=== PATIENT | female | born 2000 | race Hispanic/Latino ===

== ENCOUNTER 2020-04-12 09:13 | Outpatient (CLI) | payer OTHER ==
[2020-04-12 21:36] LABS: SARS-CoV-2 MS2 Positive; SARS-CoV-2 N Gene Negative; SARS-CoV-2 S Gene Negative; SARS-CoV-2 by NAA Not Detected (NotDetected); SARS-CoV-2 orf1ab Negative
== END 2020-04-12 09:14 | disposition home or self-care (01) ==
LOC: LABBT 09:13
PROVIDERS: ATTEND Family Medicine
DX: Z20.828 Contact with and (suspected) exposure to other viral communicable diseases (principal)
CPT/HCPCS: 87635; U0003

== ENCOUNTER 2020-04-15 16:56 | Inpatient (IN) | payer OTHER, SELFPAY ==
[~2020-04-15 16:56] MED LIST: Bupivacaine HCl 0.25%/Epi 0.0005/PF 10 ML VIAL FS ONE; Bupivacaine/Epinephrine 0.5% 10 ML VIAL ONE
[2020-04-15 21:00] VITALS: BMI 37.5
[2020-04-15] MEDS ORDERED: Carboprost 250 MCG/ML AMP IM PRN (21:03)
[2020-04-15] MEDS ORDERED: hydrALAZINE 20 MG/ML VIAL SLOW IVP PRN (21:03)
[2020-04-15] MEDS ORDERED: Ibuprofen 800 MG TAB PO PRN (21:03)
[2020-04-15] MEDS ORDERED: Lidocaine 1% (PF) 30 ML VIAL SC PRN (21:03)
[2020-04-15] MEDS ORDERED: HYDROcodone/Acetaminophen 5/325 mg Tablet PO PRN (21:03)
[2020-04-15] MEDS ORDERED: Methylergonovine 0.2 MG/ML VIAL IM PRN (21:03)
[2020-04-15] MEDS ORDERED: Ondansetron PF 4 MG/2 ML Vial IVP PRN (21:03)
[2020-04-15] MEDS ORDERED: Misoprostol 200 MCG TAB PR PRN (21:03)
[2020-04-15] MEDS ORDERED: Diphenoxylate HCl/Atropine Tablet PO PRN (21:03)
[2020-04-15] MEDS ORDERED: Promethazine HCl 25 MG/ML VIAL IM PRN (21:03)
[2020-04-15] MEDS ORDERED: Butorphanol Tartrate 1 MG/ML VIAL SLOW IVP PRN (21:03)
[2020-04-15] MEDS: Lactated Ringer's 1,000 ML IV SCH (21:30)
[2020-04-15] MEDS ORDERED: NS w/ Oxytocin 30 units 500 ML IVPB SCH ×2 (21:30)
[2020-04-15] MEDS: Misoprostol 100 MCG TAB VAG SCH (21:36)
[2020-04-15 22:07] LABS: Hemoglobin 12.9 g/dL (12.0-16.0); Mean Corpuscular HGB CONC 35.2 g/dL (32.0-36.0); Mean Corpuscular Hemoglobin 30.7 pg (27.0-31.0); Mean Corpuscular Volume 87.3 fL (78.0-98.0); Mean Platelet Volume 8.7 fL (7.4-10.4); Platelet Count 223 thou/uL (130-400); RBC Distribution Width 12.1 % (11.5-14.5); Red Blood Cell (RBC) Count 4.21 mill/uL (4.20-5.40); White Blood Cell (WBC) Count 9.4 thou/uL (4.8-10.8)
[2020-04-15 22:45] LABS: Syphilis Antibody Nonreactive (Nonreactive); Syphilis Antibody Index 0.03 S/CO (<1.00 Non-Reactive)
[2020-04-15 23:12] LABS: HBSAg Index 0.17 S/CO (0-0.99); Hep B Surf Ag Non-Reactive S/CO (NonReactive)
[2020-04-16] MEDS: Misoprostol 100 MCG TAB VAG SCH ×4 (00:30→10:52)
[2020-04-16] MEDS: Lactated Ringer's 1,000 ML IV SCH ×2 (02:53→05:17)
[2020-04-16] MEDS ORDERED: Fentanyl 4 mcg/Bup 0.1% Cadd 100 ML in Premix Bag 1 BAG EPIDURAL SCH (04:30)
[2020-04-16] MEDS ORDERED: ePHEDrine 50 MG/ML VIAL SLOW IVP PRN (05:16)
[2020-04-16] MEDS ORDERED: diphenhydrAMINE 50 MG/ML VIAL IVP PRN (05:16)
[2020-04-16] MEDS ORDERED: Lactated Ringer's 500 ML IV PRN (05:16)
[2020-04-16] MEDS ORDERED: Acetaminophen 325 MG TAB PO PRN (05:16)
[2020-04-16] MEDS ORDERED: Naloxone HCl 0.4 mg/ml Vial IVP PRN ×2 (05:16)
[2020-04-16] MEDS ORDERED: Ondansetron PF 4 MG/2 ML Vial IVP PRN ×2 (05:16→10:29)
[2020-04-16] MEDS ORDERED: Promethazine HCl 25 MG/ML VIAL IM PRN ×2 (05:16→10:29)
[2020-04-16] MEDS ORDERED: Communication Order-Pharmacy FS SCH (05:30)
[2020-04-16] MEDS ORDERED: Fentanyl 4 mcg/Bupivacaine 0.1% Cassette 100 ML EPIDURAL SCH (05:30)
[2020-04-16] MEDS ORDERED: Ondansetron PF 4 MG/2 ML Vial ONE (06:18)
[2020-04-16] MEDS ORDERED: Lidocaine 1% (PF) 30 ML VIAL ONE (06:53)
[2020-04-16] MEDS: NS w/ Oxytocin 30 units 500 ML IVPB PRN ×2 (07:52→08:33)
[2020-04-16 08:47] LABS: Actual Bicarbonate (HCO3a) 19.8 mEq/L (22-28); Actual Bicarbonate (HCO3v) 20 mEq/L (22-28); Analyzer IN Cardio OR; Base Excess -8.5 mEq/L (-2.0 to +3.0); Base Excess (BEa) -9.2 mEq/L (-2.0 to +3.0)
[2020-04-16 08:48] LABS: pH (Cord, venous) 7.21 (7.32-7.43)
[2020-04-16] MEDS ORDERED: Benzocaine-Menthol 82.5 ML CAN TOP PRN (10:29)
[2020-04-16] MEDS ORDERED: Preparation H Ointment 28 GM TUBE PR PRN (10:29)
[2020-04-16] MEDS ORDERED: NS / Oxytocin 40 units/1000ml 1,000 ML IV SCH (10:29)
[2020-04-16] MEDS ORDERED: Lanolin Ointment 7 GM TUBE TOP PRN (10:29)
[2020-04-16] MEDS ORDERED: HYDROcodone/Acetaminophen 5/325 mg Tablet PO PRN ×2 (10:29)
[2020-04-16] MEDS ORDERED: Milk Of Magnesia 30 ML UDCUP PO PRN (10:29)
[2020-04-16] MEDS ORDERED: diphenhydrAMINE 25 MG CAP PO PRN (10:29)
[2020-04-16] MEDS ORDERED: Bisacodyl 10 MG SUPP PR PRN (10:29)
[2020-04-16] MEDS ORDERED: Adacel (T-DAP) 0.5 ML SYRINGE IM ONE (10:29)
[2020-04-16] MEDS ORDERED: Docusate Calcium (SURFAK) 240 MG CAP PO SCH (12:00)
[2020-04-16] MEDS ORDERED: hydrALAZINE 20 MG/ML VIAL SLOW IVP SCH (12:00)
[2020-04-16] MEDS: Ibuprofen 800 MG TAB PO SCH ×2 (15:33→21:39)
[2020-04-16] MEDS: Ferrous Sulfate 325 MG TAB PO SCH (15:55)
[2020-04-16] MEDS: Docusate Calcium (SURFAK) 240 MG CAP PO SCH (21:40)
[2020-04-17] MEDS: Ibuprofen 800 MG TAB PO SCH ×3 (06:16→21:35)
[2020-04-17] MEDS: Ferrous Sulfate 325 MG TAB PO SCH (07:15)
[2020-04-17] MEDS: Docusate Calcium (SURFAK) 240 MG CAP PO SCH ×2 (08:42→21:35)
[2020-04-17] MEDS: Prenatal Vitamin 1 TAB PO SCH (08:42)
[2020-04-18] MEDS: Ibuprofen 800 MG TAB PO SCH (06:08)
[2020-04-18] MEDS: Ferrous Sulfate 325 MG TAB PO SCH (07:16)
[2020-04-18 07:58] VITALS: BP 117/70; TEMP 98.4
[2020-04-18] MEDS: Docusate Calcium (SURFAK) 240 MG CAP PO SCH (08:37)
[2020-04-18] MEDS: Prenatal Vitamin 1 TAB PO SCH (08:37)
== END 2020-04-18 14:22 | disposition home or self-care (01) | DRG 807 ==
LOC: L&D 20:07 → 3SE 04-16 10:46
PROVIDERS: ADMIT Family Medicine; ATTEND Family Medicine
PROC: 3E0P7VZ Introduction of Hormone into Female Reproductive, Via Natural or Artificial Opening (ICD-10-PCS; 2020-04-15)
PROC: 10D07Z6 Extraction of Products of Conception, Vacuum, Via Natural or Artificial Opening (ICD-10-PCS; principal; 2020-04-16)
PROC: 0W8NXZZ Division of Female Perineum, External Approach (ICD-10-PCS; 2020-04-16)
DX: O76 Abnormality in fetal heart rate and rhythm complicating labor and delivery (principal); Z37.0 Single live birth; Z3A.40 40 weeks gestation of pregnancy; Z20.828 Contact with and (suspected) exposure to other viral communicable diseases
CPT/HCPCS: 36415; 51702; 82805; 85027; 86780; 86850; 86900; 86901; 87340; J2405; J2590; J3490

== ENCOUNTER 2021-01-20 08:08 | Outpatient (CLI) | payer OTHER | END 2021-01-20 08:09 | disposition home or self-care (01) | LOC: BICULT 08:08 | PROVIDERS: ATTEND Nurse Practitioner Women's Health | DX: Z34.82 Encounter for supervision of other normal pregnancy, second trimester (principal); Z3A.20 20 weeks gestation of pregnancy | CPT/HCPCS: 76805 ==